=== PATIENT | female | born 1960 | race Caucasian/White ===

== ENCOUNTER 2018-04-01 10:26 | Emergency (ER) | payer MEDICAID ==
[~2018-04-01] VITALS: Ht 154.9 cm; Wt 68.0 kg
[~2018-04-01 10:26] MED LIST: [UNRECOGNIZED DRUG - OTHER]
[2018-04-01] MEDS ORDERED: LISI10TA5 PO (10:39)
[2018-04-01] MEDS ORDERED: MECL-102 PO (10:39)
[2018-04-01] MEDS ORDERED: ESCI10TA55 PO (10:39)
[2018-04-01] MEDS ORDERED: PROCHLORPERAZINE EDISYLATE 10 MG/2 ML VIAL ONE (11:00)
[2018-04-01] MEDS ORDERED: PROCHLORPERAZINE EDISYLATE 10 MG/2 ML VIAL IM ONE (11:00)
[2018-04-01] MEDS ORDERED: LORAZEPAM 2 MG/1 ML VIAL IM ONE (11:00)
[2018-04-01] MEDS ORDERED: LORAZEPAM 2 MG/1 ML VIAL ONE (11:01)
[2018-04-01 11:02] LABS: BASOPHILS % (AUTO) 0.5 % (0.0-2.0); EOSINOPHILS % (AUTO) 0.5 % (0.0-7.0); HEMATOCRIT 40.8 % (31.2-41.9); HEMOGLOBIN 13.9 g/dL (10.9-14.3); LYMPHOCYTES # (AUTO) 1.6 K/uL (20.0-40.0); LYMPHOCYTES % (AUTO) 22.2 % (20.5-51.5); MEAN CORPUSCULAR HEMOGLOBIN 30.9 uug (24.7-32.8); MEAN CORPUSCULAR HGB CONC 34 g/dL (32.3-35.6); MEAN CORPUSCULAR VOLUME 90.8 fL (75.5-95.3); MONOCYTES # (AUTO) 0.3 K/uL (2.0-10.0); MONOCYTES % (AUTO) 4.3 % (0.0-11.0); NEUTROPHILS # (AUTO) 5.2 K/uL (1.8-8.9); NEUTROPHILS % (AUTO) 72.5 % (38.5-71.5); PLATELET COUNT (AUTO) 216 K/uL (179-408); WHITE BLOOD COUNT (AUTO) 7.2 K/uL (3.8-11.8)
[2018-04-01 11:08] LABS: CREATININE 0.6 mg/dL (0.6-1.3); POTASSIUM 3.9 mmol/L (3.5-5.1)
--- NOTE | 2018-04-01 12:31 | NUR ---
mse completerd, pt d/c'd home, aci given. pt ambulated w/o diff/took all belongings.
[2018-04-01 12:33] VITALS: BP 143/92
== END 2018-04-01 12:34 | disposition home or self-care (01) ==
LOC: ER 10:29
DX: R51 Headache (principal); R42 Dizziness and giddiness; I10 Essential (primary) hypertension; Z90.49 Acquired absence of other specified parts of digestive tract
CPT/HCPCS: 36415; 70450; 80048; 85025; 85651; 93005; 96372 ×2; 99285; A4663; J0780; J2060